=== PATIENT | female | born 1950 | race Caucasian/White ===

== ENCOUNTER 2016-09-30 11:05 | Day surgery (SDC) | payer OTHER ==
[2016-09-29 11:18] VITALS: BMI 20.2
[2016-09-30] MEDS ORDERED: MIDAZOLAM HCL 2 MG/2 ML SINGLE DOSE VIAL ONE (13:16)
[2016-09-30] MEDS ORDERED: PROPOFOL 20 ML ONE (13:16)
[2016-09-30] MEDS ORDERED: ROCURONIUM BROMIDE 50 MG/5 ML VIAL ONE (13:16)
[2016-09-30] MEDS ORDERED: ceFAZolin SODIUM 1 GM VIAL IVPB ONE (13:35)
[2016-09-30] MEDS ORDERED: ceFAZolin SODIUM 1 GM VIAL ONE (13:37)
[2016-09-30] MEDS ORDERED: DEXAMETHASONE SOD PHOSPHATE 4 MG/1 ML VIAL ONE (13:37)
[2016-09-30] MEDS ORDERED: BUPIVACAINE HCL/PF 0.5% (5MG/ML) 10 ML VIAL ONE (13:49)
[2016-09-30] MEDS ORDERED: IBUPROFEN 800 MG/8 ML IJ IVPB PRN (14:07)
[2016-09-30] MEDS ORDERED: oxyCODONE HCL 5 MG TABLET PO PRN ×2 (14:07→15:23)
[2016-09-30] MEDS ORDERED: LACTATED RINGERS SOLUTION 1,000 ML IV SCH (14:15)
[2016-09-30] MEDS ORDERED: NEOSTIGMINE METHYLSULFATE 0.5 MG/ML - 10 ML MDV ONE (14:36)
[2016-09-30] MEDS ORDERED: GLYCOPYRROLATE 0.2 MG/1 ML VIAL ONE (14:36)
[2016-09-30] MEDS ORDERED: BUPIVACAINE HCL/PF 0.5% (5MG/ML) 10 ML VIAL IJ ONE (14:36)
--- NOTE | 2016-09-30 14:53 | OP ---
Operative Note - Note: Operative Date: 09/30/16 Pre-Operative Diagnosis: cholelithiasis Operation: lap cholecystectomy Post-Operative Diagnosis: Same as Pre-op Surgeon: Kevin Landers Pharmacy Picking Technician: Karina Galvan Anesthesia: General Estimated Blood Loss (mls): 25 Operative Report Dictated: Yes
[2016-09-30] MEDS ORDERED: ACETAMINOPHEN 325 MG TABLET (FP) PO PRN (14:56)
[2016-09-30] MEDS ORDERED: DEXTROSE 5%-LACTATED RINGERS 1,000 ML IV SCH (15:00)
--- NOTE | 2016-09-30 15:02 | SURG ---
Surgery Director Of Planning Note Director Of Planning: Karina Galvan PA-C Date of Service: 09/30/16 Diagnosis: cholelithiasis Procedure: lap cholecystectomy I was present for the entirety of the operative procedure. For further detail, please refer to operative report. Visit type - Case Type Case Type: Scheduled Admission - Emergency Emergency Visit: No - New patient This patient is new to me today: Yes Date on this admission: 09/30/16 - Critical Care Critical Care patient: No
[2016-09-30] MEDS ORDERED: IBUPROFEN 800 MG/8 ML IJ IVPB ONE (15:50)
[2016-09-30] MEDS ORDERED: ONDANSETRON 4 MG/2 ML VIAL ONE (16:22)
[2016-09-30] MEDS: ONDANSETRON 4 MG/2 ML VIAL IVPUSH PRN ×2 (16:25→16:30)
[2016-09-30 17:07] VITALS: TEMP 98
[2016-09-30 19:40] VITALS: BP 133/77; PULSE 66
--- NOTE | 2016-10-02 07:54 | OP ---
DATE OF OPERATION: 09/30/2016 PREOPERATIVE DIAGNOSES: Cholelithiasis, symptomatic. POSTOPERATIVE DIAGNOSES: Cholelithiasis, symptomatic. PROCEDURE: Laparoscopic cholecystectomy. SURGEON: Kevin Landers MD ASSISTANTS: SARITA Jackson COMPLICATIONS: None. BLEEDING: Minimal. SPECIMEN: Gallbladder. CONDITION: Patient tolerated procedure well. INDICATIONS: This is a 66-year-old female with biliary colic, symptomatic cholelithiasis confirmed by ultrasound and was referred for surgical management by her PCP. Patient underwent medical clearance, extensive discussion in regards to risks, complications and alternatives took place and informed consent was obtained. DESCRIPTION OF PROCEDURE: In the operating room she was placed in the supine position. After the induction of general anesthesia she was prepped and draped in the usual sterile fashion. Once a time-out was observed and the procedure was begun with a periumbilical incision. This was carried through subcutaneous tissues with a scalpel and a standard Prince approach was done to enter the peritoneal cavity and a 12 mm port was established here. Insufflation to a pressure of 15 mmHg was then established and under direct laparoscopic control then three 5 mm ports were introduced. There was some minor adhesions to the intraabdominal wall which were taken down with the use of sharp dissection with Endoshears. The gallbladder was identified and retracted superiorly. The patient was positioned in a reverse Trendelenburg position. There were adhesions in the gallbladder which were then divided sharply with the use of Endoshears. Mobilization of the gallbladder demonstrated what appeared to be a folding infundibulum, quite elongated creating somewhat of an anatomical difficulty with identification of the anatomy. However, on further dissection, the cystic duct was identified. It was circumferentially dissected. Care was taken to establish clear imaging of the cystic duct and common bile duct junction. ICG had been previously administered IV and now with [employer] ICG visualization pinpoint system, which visualized the common bile duct and cystic duct clearly with a clear establishment of the surgical view of safety, then the cystic duct was doubly ligated with Endoclips and divided with Endoshears. The cystic artery was similarly dissected carefully and it was circumferentially dissected and double ligated with Endoclips and divided with Endoshears. The gallbladder was then dissected off the liver bed with sharp dissection using Endoshears and occasional use of cautery for control of hemorrhage. Once the gallbladder was completely taken off the liver bed, then irrigation was performed and suctioned appropriately. A final check for hemostasis was performed with cautery. The gallbladder was placed in an EndoCatch bag and then removed through an umbilical port. The port was removed under direct vision. The fascia at the umbilical port was closed with 0 Vicryl sutures in interrupted fashion. The skin was closed with 4-0 Monocryl. Dermabond was applied and the patient was returned to the recovery room awake and alert in stable condition. She tolerated the procedure well. Justin [id number]
--- NOTE | 2016-10-02 17:13 | PATH ---
Surgical Pathology Report Patient Name: TASH [facility]. Rec. #: [id number] /Age/Gender: 1950 (Age: 66) / F Account: [id number] Location: [facility] SURGICAL Taken: 09/30/2016 Received: 10/01/2016 Reported: 10/02/2016 Physicians: Kevin Landers M.D. Specimen(s) Received GALLBLADDER Clinical History Cholecystitis, cholelithiasis Final Diagnosis GALLBLADDER, CHOLECYSTECTOMY: CHRONIC CHOLECYSTITIS AND CHOLELITHIASIS. Electronically Signed Luis Griffin M.D. Gross Description Received in formalin, labeled "gallbladder," is an 8.8 x 2.8 x 2.7 cm. gallbladder with a 0.2 cm. in length portion of cystic duct attached. The outer surface is glez green and varies from smooth to shaggy. The lumen contains green, tenacious bile as well as 5 black, irregular choleliths ranging from 0.5-1.2 cm in greatest dimension. The mucosa is green and focally eroded. The wall of the gallbladder averages 0.1 cm. in thickness. [employer]ing [employer] sections are submitted in one cassette. 10/01/201610/01/2016
== END 2016-09-30 17:00 | disposition home or self-care (01) ==
LOC: JASU-SURG 11:05
PROVIDERS: ATTEND Surgery
PROC: 0FT44ZZ Resection of Gallbladder, Percutaneous Endoscopic Approach (ICD-10-PCS; principal; 2016-09-30 13:00)
DX: K80.80 Other cholelithiasis without obstruction (principal)
CPT/HCPCS: 88304-TC; 94760